=== PATIENT | male | born 1960 | race Two or more races ===

== ENCOUNTER 2016-11-20 00:34 | Observation (INO) | payer OTHER ==
[2016-11-20] VITALS (7 sets, daily range): BP systolic 86–103; BP diastolic 55–66
[~2016-11-20] VITALS: Ht 177.8 cm; Wt 86.8 kg
[~2016-11-20 00:34] MED LIST: AMBIEN5 MG PO; AMOXICILLIN500 MG PO; ASPIRIN81 M2 PO; ATORVASTATIN CA40 MG PO; DILAUDID8 MG PO; FUROSEMIDE20 MG PO; KLOR-CON 1010 ME1 PO; LISINOPRIL2.5 MG PO; METOPROLOL TART25 MG PO; NITROLINGUAL S4.9 GM MM; PLAVIX75 MG PO; PROTONIX40 MG PO; RANITIDINE HCL300 M1 PO; URSODIOL300 MG PO; ZOFRAN8 MG PO
[2016-11-20 01:14] LABS: CHLORIDE 106 mEq/L (99-109); POTASSIUM 4.1 mEq/L (3.7-5.4); SODIUM 139 mEq/L (136-147)
[2016-11-20 01:16] LABS: GLUCOSE 99 mg/dL (70-99)
[2016-11-20 01:17] LABS: ANION GAP 9 MEQ/L (2-14); HEMATOCRIT 43.6 % (38.0-50.0); MCH 29.5 PG (29.0-34.0); MCHC 34.2 G/DL (30.0-36.0); MCV 86.3 FL (86-99); RBC DIS.WIDTH-CV 13.2 % (11.8-14.6); RBC DIS.WIDTH-SD 41.1 % (39-53); RED BLOOD COUNT 5.05 M/uL (4.00-5.50); WHITE BLOOD COUNT 6.8 K/uL (4.1-10.2)
[2016-11-20 01:20] LABS: GFR ESTIMATE (CALCULATED) > 59 mL/min/; UREA NITROGEN (BUN) 14 mg/dL (9-23)
[2016-11-20 01:28] LABS: TROP-I INTERPRETATION NEGATIVE; TROPONIN-I < 0.01 ng/mL (0.0-0.30)
[2016-11-20 07:59] LABS: HEMATOLOGY COMMENT 1 SMEAR COMPATIBLE; MEAN PLAT.VOLUME 10.2 uM^3 (9.0-12.4); PLAT.SUFFICIENCY ADEQUATE; PLATELET COUNT 182 K/uL (156-360)
[2016-11-20 09:36] LABS: TROP-I INTERPRETATION NEGATIVE; TROPONIN-I < 0.01 ng/mL (0.0-0.30)
[2016-11-20 13:53] LABS: TROP-I INTERPRETATION NEGATIVE; TROPONIN-I < 0.01 ng/mL (0.0-0.30)
[2016-11-20] MEDS ORDERED: LEVAQUIN750 MG PO (15:56)
[2016-11-20] MEDS ORDERED: PREDNISONE20 MG PO (15:56)
== END 2016-11-20 17:24 | disposition home or self-care (01) ==
LOC: EME 00:34 → EDOF 03:12 → 5WEST 05:06
PROVIDERS: Internal Medicine
DX: J44.0 Chronic obstructive pulmonary disease with (acute) lower respiratory infection (principal); J20.9 Acute bronchitis, unspecified; R07.9 Chest pain, unspecified; I25.10 Atherosclerotic heart disease of native coronary artery without angina pectoris; Z95.1 Presence of aortocoronary bypass graft; Z95.5 Presence of coronary angioplasty implant and graft; K86.1 Other chronic pancreatitis; G89.29 Other chronic pain; I10 Essential (primary) hypertension; E78.5 Hyperlipidemia, unspecified; R56.9 Unspecified convulsions; K44.9 Diaphragmatic hernia without obstruction or gangrene; K21.9 Gastro-esophageal reflux disease without esophagitis; Z79.82 Long term (current) use of aspirin; Z79.02 Long term (current) use of antithrombotics/antiplatelets; F17.200 Nicotine dependence, unspecified, uncomplicated
CPT/HCPCS: 71020; 71275; 80048; 84484; 85027; 93005; G0378; J1885; J1953; J1956; J2270; J2405; J7030; J7050; J7512

== ENCOUNTER 2017-11-08 21:41 | Emergency (ER) | payer OTHER ==
[~2017-11-08] VITALS: Ht 175.3 cm; Wt 91.4 kg
[~2017-11-08 21:41] MED LIST changes: +LEVAQUIN750 MG PO; +PREDNISONE20 MG PO
[2017-11-08 21:54] VITALS: BP 136/75
[2017-11-08 22:13] LABS: HEMOGLOBIN 15.2 G/DL (12.5-16.6); MCHC 34.5 G/DL (30.0-36.0); MCV 86.8 FL (86-99); PLATELET COUNT 224 K/uL (156-360); RBC DIS.WIDTH-CV 13.3 % (11.8-14.6); RBC DIS.WIDTH-SD 41.8 % (39-53); RED BLOOD COUNT 5.07 M/uL (4.00-5.50); WHITE BLOOD COUNT 7.6 K/uL (4.1-10.2)
[2017-11-08 22:24] LABS: CHLORIDE 106 mEq/L (99-109); POTASSIUM 4.2 mEq/L (3.7-5.4); SODIUM 136 mEq/L (136-147)
[2017-11-08 22:26] LABS: GLUCOSE 112 mg/dL (70-99); TOTAL PROTEIN 7.1 g/dL (6.4-8.3)
[2017-11-08 22:28] LABS: TOTAL BILIRUBIN 0.7 mg/dL (0.0-1.0)
[2017-11-08 22:30] LABS: ALKALINE PHOSPHATASE 93 IU/L (3-129); CREATININE 1.3 mg/dL (0.6-1.3); GFR ESTIMATE (CALCULATED) > 59 mL/min/ (58.99-99999)
[2017-11-08 22:31] LABS: UREA NITROGEN (BUN) 13 mg/dL (9-23)
[2017-11-08 22:32] LABS: AST (GOT) 18 IU/L (2-34)
[2017-11-08 22:33] LABS: ALT (GPT) 24 IU/L (3-49); LIPASE 20 U/L (1.0-51.0)
[2017-11-08 22:35] LABS: TROP-I INTERPRETATION NEGATIVE; TROPONIN-I < 0.01 ng/mL (0.0-0.30)
== END 2017-11-09 01:37 | disposition left against medical advice (07) ==
LOC: EME 21:41
DX: R10.9 Unspecified abdominal pain (principal); K80.20 Calculus of gallbladder without cholecystitis without obstruction; I10 Essential (primary) hypertension; I25.2 Old myocardial infarction; E78.5 Hyperlipidemia, unspecified; Z86.73 Personal history of transient ischemic attack (TIA), and cerebral infarction without residual deficits; Z95.1 Presence of aortocoronary bypass graft; Z95.5 Presence of coronary angioplasty implant and graft; Z79.02 Long term (current) use of antithrombotics/antiplatelets; F17.200 Nicotine dependence, unspecified, uncomplicated; Z53.20 Procedure and treatment not carried out because of patient's decision for unspecified reasons
CPT/HCPCS: 71046; 80053; 81003; 83690; 84484; 85027; 93005; J2405; J3010; J7030